=== PATIENT | male | born 1930 | race Caucasian/White ===

== ENCOUNTER → 2019-09-15 | Outpatient (CLI) | payer MEDICARE, OTHER ==
[~2019-09-15] MED LIST: CATHETER FLUSH 10 ML SYR IV PRN; HOLD METFORMIN - RECEIVED CONTRAST 20 ML VIAL IV SCH; IOHEXOL 350 MG/ML 100 ML (OMNIPAQUE 350) VIAL IV ONE; NS 100 ML (IVPB) BAG IV ONE
[2019-09-15 10:22] LABS: CREATININE SERUM 1.32 MG/DL (0.60-1.30)
--- NOTE | 2019-09-15 11:29 | Diagnostic Imaging Report ---
PROCEDURE: CT abdomen and pelvis with and without contrast. TECHNIQUE: Precontrast acquisitions were acquired through the abdomen and pelvis. Multiple contiguous axial images were obtained through the abdomen and pelvis after the administration of intravenous contrast. Auto Exposure Controls were utilized during the CT exam to meet ALARA standards for radiation dose reduction. INDICATION: Right-sided abdominal pain and flank pain for two months. COMPARISON: No prior studies are available for comparison. FINDINGS: Imaging through the lung bases does show some air cysts in the lingula as well as some linear opacities in both bases suggestive of some scarring or subsegmental atelectasis. There are circumscribed low densities within the liver, largest left lobe measuring 4.9 cm and consistent with cysts. The gallbladder is unremarkable. No biliary duct dilatation is seen. The pancreas is unremarkable. Spleen is enlarged measuring up to 16.5 cm AP dimension. No adrenal mass is identified. No definite renal calculi are detected. No ureteral calculi or hydronephrosis is identified. Aorta and iliac vessels are calcified but non-aneurysmal. No central retroperitoneal or mesenteric lymphadenopathy is identified. The small and large bowel loops are normal caliber. No obstruction is identified. No free fluid or fluid collection is detected. The bladder is unremarkable. 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 No definite inguinal or iliac lymphadenopathy is detected. Bony structures are nonacute. IMPRESSION: 1. Hepatic cysts. 2. Mild splenomegaly. 3. No acute feature in the abdomen or pelvis is identified. Dictated by: Dictated on workstation # [id number]
== END ==
LOC: RAD FS 09:30
PROVIDERS: ATTEND Nurse Practitioner Family
DX: K76.89 Other specified diseases of liver (principal); R16.1 Splenomegaly, not elsewhere classified
CPT/HCPCS: 36415; 74178; 82565; 84520

== ENCOUNTER 2020-07-29 02:38 | Emergency (ER) | payer MEDICARE, OTHER ==
[~2020-07-29] VITALS: Ht 175.2 cm; Wt 88.4 kg
[~2020-07-29 02:38] MED LIST changes: +ALBU2.5V4 PO; +ASPI-1238 PO; +CARB15DR OD; -CATHETER FLUSH 10 ML SYR IV PRN; +FINA5TAB6 PO; -HOLD METFORMIN - RECEIVED CONTRAST 20 ML VIAL IV SCH; -IOHEXOL 350 MG/ML 100 ML (OMNIPAQUE 350) VIAL IV ONE; +KETO5DRO14 OD; +LISI-552 PO; +LISI1TAB26 PO; -NS 100 ML (IVPB) BAG IV ONE; +OFLO5DRO3 OD; +PRED5DRO3 OD; +TMSL.4C PO
--- NOTE | 2020-07-29 03:03 | ED General ---
General Chief Complaint: General Problems/Pain Stated Complaint: SHAKEY Source of Information: Patient History of Present Illness Date Seen by Provider: Jul 29, 2020 Time Seen by Provider: 02:50 Initial Comments 89 y/o male presents w c/o feeling "shakey" for the past 2 days. Denies CP, SOA, fever, chills, abdominal pain, nausea or vomiting. States seen and admitted to [facility] a couple weeks ago for a low sodium. Does not take anxiety medication Allergies and Home Medications Allergies Coded Allergies: No Known Drug Allergies (Unverified , 06/22/20) Home Medications Albuterol Sulfate 2.5 Mg/3 Ml Vial.neb, 2.5 MG PO Q4H PRN for SHORTNESS OF BREATH, (Reported) Aspirin 81 Mg Tablet.dr, 81 MG PO DAILY, (Reported) Carboxymethylcellulose Sodium 15 Ml Drops, 1 DROP OD QID, (Reported) Finasteride 5 Mg Tablet, 5 MG PO DAILY, (Reported) Ketorolac Tromethamine 5 Ml Drops, 1 DROP OD QID, (Reported) Lisinopril 20 Mg Tablet, 20 MG PO DAILY Prescribed by: MAXIM ELAINE on 06/24/20 1157 Ofloxacin 5 Ml Drops, 1 DROP OD QID, (Reported) Prednisolone Acetate 5 Ml Drops.susp, 1 DROP OD QID, (Reported) Tamsulosin HCl 0.4 Mg Cap, 0.4 MG PO DAILY, (Reported) Patient Home Medication List Home Medication List Reviewed: Yes Review of Systems Review of Systems Constitutional: No dizziness, No fever, No malaise, No weakness; other (feeling shakey) EENTM: no symptoms reported Respiratory: no symptoms reported; No cough, No short of breath Cardiovascular: no symptoms reported; No chest pain, No edema, No palpitations, No syncope Gastrointestinal: No abdominal pain, No constipation, No diarrhea, No nausea, No vomiting Genitourinary: No hematuria Musculoskeletal: No back pain, No joint pain Skin: No change in color, No rash Psychiatric/Neurological: Denies Anxiety, Denies Depressed, Denies Emotional Problems, Denies Headache, Denies Numbness, Denies Paresthesia, Denies Seizure; Tremors; Denies Weakness Past Pwxfwgx-Wutyjp-Scxzef Hx Past Med/Social Hx: Reviewed Nursing Past Med/Soc Hx Patient Social History Alcohol Beverage of Choice: Beer Recent Foreign Travel: No Contact w/Someone Who Travel: No Immunizations Up To Date Date of Pneumonia Vaccine: Jun 15, 2020 Date of Influenza Vaccine: Jun 15, 2020 Past Medical History Surgeries: No Respiratory: No Cardiac: Yes Hypertension Neurological: No Genitourinary: Yes Benign Prostatic Hyperpl Gastrointestinal: No Musculoskeletal: No Endocrine: No HEENT: No Cancer: No Psychosocial: No Integumentary: No Family Medical History Hypertension Physical Exam Vital Signs Vital Signs - First Documented 07/29/20 02:45 Temp 36.8 Pulse 79 Resp 14 B/P (MAP) 108/73 (85) O2 Delivery Room Air Capillary Refill : Height, Weight, BMI Height: '" Weight: lbs. oz. kg; 29.25 BMI Method: General Appearance: No Apparent Distress, WD/WN Eyes: Bilateral Eye Normal Inspection, Bilateral Eye PERRL, Bilateral Eye EOMI HEENT: PERRL/EOMI, Normal ENT Inspection Neck: Normal Inspection, Non Tender, Supple Respiratory: Chest Non Tender, Lungs Clear, Normal Breath Sounds Cardiovascular: Regular Rate, Rhythm, No Edema, No JVD Gastrointestinal: Non Tender, Soft; No Distended, No Guarding Back: Normal Inspection, No CVA Tenderness Extremity: Normal Capillary Refill, Normal Inspection, Normal Range of Motion, Non Tender, No Calf Tenderness Neurologic/Psychiatric: Alert, Oriented x3, No Motor/Sensory Deficits, Normal Mood/Affect, Other (resting tremor b/l hands) Skin: Normal Color, Warm/Dry Progress/Results/Core Measures Suspected Sepsis SIRS Temperature: Pulse: Respiratory Rate: Laboratory Tests 07/29/20 03:05: White Blood Count 6.7 Blood Pressure / Mean: Laboratory Tests 07/29/20 03:05: Creatinine 1.40H, Platelet Count 213, Total Bilirubin 0.4 Results/Orders Lab Results Laboratory Tests Test 07/29/20 03:05 07/29/20 03:10 Range/Units White Blood Count 6.7 4.3-11.0 10^3/uL Red Blood Count 4.01 L 4.35-5.85 10^6/uL Hemoglobin 12.0 L 13.3-17.7 G/DL Hematocrit 36 L 40-54 % Mean Corpuscular Volume 89 80-99 FL Mean Corpuscular Hemoglobin 30 25-34 PG Mean Corpuscular Hemoglobin Concent 34 32-36 G/DL Red Cell Distribution Width 13.1 10.0-14.5 % Platelet Count 213 130-400 10^3/uL Mean Platelet Volume 9.7 7.4-10.4 FL Immature Granulocyte % (Auto) 0 % Neutrophils (%) (Auto) 56 42-75 % Lymphocytes (%) (Auto) 31 12-44 % Monocytes (%) (Auto) 10 0-12 % Eosinophils (%) (Auto) 2 0-10 % Basophils (%) (Auto) 1 0-10 % Neutrophils # (Auto) 3.7 1.8-7.8 X 10^3 Lymphocytes # (Auto) 2.1 1.0-4.0 X 10^3 Monocytes # (Auto) 0.7 0.0-1.0 X 10^3 Eosinophils # (Auto) 0.1 0.0-0.3 10^3/uL Basophils # (Auto) 0.1 0.0-0.1 10^3/uL Immature Granulocyte # (Auto) 0.0 0.0-0.1 10^3/uL Sodium Level 129 L 135-145 MMOL/L Potassium Level 4.2 3.6-5.0 MMOL/L Chloride Level 93 L 98-107 MMOL/L Carbon Dioxide Level 25 21-32 MMOL/L Anion Gap 11 5-14 MMOL/L Blood Urea Nitrogen 18 7-18 MG/DL Creatinine 1.40 H 0.60-1.30 MG/DL Estimat Glomerular Filtration Rate 48 BUN/Creatinine Ratio 13 Glucose Level 107 H 70-105 MG/DL Calcium Level 9.0 8.5-10.1 MG/DL Corrected Calcium 8.7 8.5-10.1 MG/DL Total Bilirubin 0.4 0.1-1.0 MG/DL Aspartate Amino Transf (AST/SGOT) 17 5-34 U/L Alanine Aminotransferase (ALT/SGPT) 14 0-55 U/L Alkaline Phosphatase 68 40-136 U/L Total Protein 6.3 L 6.4-8.2 GM/DL Albumin 4.4 3.2-4.5 GM/DL Urine Color YELLOW Urine Clarity CLEAR Urine pH 7.0 5-9 Urine Specific [place] 1.010 L 1.016-1.022 Urine Protein NEGATIVE NEGATIVE Urine Glucose (UA) NEGATIVE NEGATIVE Urine Ketones NEGATIVE NEGATIVE Urine Nitrite NEGATIVE NEGATIVE Urine Bilirubin NEGATIVE NEGATIVE Urine Urobilinogen 0.2 < = 1.0 MG/DL Urine Leukocyte Esterase NEGATIVE NEGATIVE Urine RBC (Auto) NEGATIVE NEGATIVE Urine RBC NONE /HPF Urine WBC RARE /HPF Urine Squamous Epithelial Cells NONE /HPF Urine Crystals NONE /LPF Urine Bacteria NEGATIVE /HPF Urine Casts NONE /LPF Urine Mucus NEGATIVE /LPF Urine Culture Indicated NO My Orders Orders - EL ESQUIVEL DO Cbc With Automated Diff (07/29/20 02:56) Comprehensive Metabolic Panel (07/29/20 02:56) Urinalysis (07/29/20 02:56) Ed Iv/Invasive Line Start (07/29/20 02:56) Ns Iv 1000 Ml (Sodium Chloride 0.9%) (07/29/20 04:00) Lorazepam Injection (Ativan Injection) (07/29/20 04:00) Vital Signs/I&O 07/29/20 02:45 Temp 36.8 Pulse 79 Resp 14 B/P (MAP) 108/73 (85) O2 Delivery Room Air Capillary Refill : Departure Impression Primary Impression: Anxiety Additional Impression: Hyponatremia Disposition: 01 HOME, SELF-CARE Condition: Improved Departure-Patient Inst. Decision time for Depature: 04:01 Referrals: [facility] (PCP) Primary Care Physician COLLIN HICKS APRN (Family) Primary Care Physician Patient Instructions: Hyponatremia (DC), Anxiety, Adult (DC) Add. Discharge Instructions: See your Primary Care Provider next week for repeat labs to check your sodium level again. All discharge instructions reviewed with patient and/or family. Voiced understan ding. EL ESQUIVEL DO Jul 29, 2020 03:02
[2020-07-29 03:22] LABS: HEMATOCRIT 36 % (40-54); MEAN CORPUSCULAR HEMOGLOBIN 30 PG (25-34); MEAN CORPUSCULAR VOLUME 89 FL (80-99); WHITE BLOOD COUNT 6.7 10^3/uL (4.3-11.0)
[2020-07-29 03:23] LABS: BASOPHILS % (AUTO) 1 % (0-10); EOSINOPHILS % (AUTO) 2 % (0-10); LYMPHOCYTES % (AUTO) 31 % (12-44); MEAN CORPUSCULAR HGB CONC 34 G/DL (32-36); MEAN PLATELET VOLUME 9.7 FL (7.4-10.4); MONOCYTES % (AUTO) 10 % (0-12); NEUTROPHILS % (AUTO) 56 % (42-75); PLATELET COUNT 213 10^3/uL (130-400)
[2020-07-29 03:24] LABS: BASOPHILS # (AUTO) 0.1 10^3/uL (0.0-0.1); EOSINOPHILS # (AUTO) 0.1 10^3/uL (0.0-0.3); LYMPHOCYTES # (AUTO) 2.1 X 10^3 (1.0-4.0); MONOCYTES # (AUTO) 0.7 X 10^3 (0.0-1.0); NEUTROPHILS # (AUTO) 3.7 X 10^3 (1.8-7.8)
[2020-07-29 03:40] LABS: BACTERIA,URINE NEGATIVE /HPF; BILIRUBIN,URINE NEGATIVE (NEGATIVE); CLARITY,URINE CLEAR; COLOR,URINE YELLOW; GLUCOSE, URINE (UA) NEGATIVE (NEGATIVE); KETONES,URINE NEGATIVE (NEGATIVE); LEUKOCYTE ESTERASE ,URINE NEGATIVE (NEGATIVE); NITRITE,URINE NEGATIVE (NEGATIVE); PROTEIN,URINE NEGATIVE (NEGATIVE); WBC,URINE RARE /HPF
[2020-07-29 03:42] LABS: ALBUMIN 4.4 GM/DL (3.2-4.5); BILIRUBIN,TOTAL 0.4 MG/DL (0.1-1.0); CREATININE SERUM 1.4 MG/DL (0.60-1.30); POTASSIUM 4.2 MMOL/L (3.6-5.0); TOTAL PROTEIN 6.3 GM/DL (6.4-8.2)
[2020-07-29] MEDS ORDERED: LORazepam INJ 2 MG/ML (ATIVAN) VIAL IVP ONE (04:00)
[2020-07-29] MEDS ORDERED: NS IV 1000 ML 1,000 ML IV SCH (04:00)
[2020-07-29 04:40] VITALS: BP 145/91
== END 2020-07-29 04:40 | disposition home or self-care (01) ==
LOC: EDUNIT# 02:38 → ER FS 02:41
DX: F41.9 Anxiety disorder, unspecified (principal); E87.1 Hypo-osmolality and hyponatremia; I10 Essential (primary) hypertension; N40.0 Benign prostatic hyperplasia without lower urinary tract symptoms; Z82.49 Family history of ischemic heart disease and other diseases of the circulatory system; Z79.82 Long term (current) use of aspirin; Z79.52 Long term (current) use of systemic steroids
CPT/HCPCS: 36415; 80053; 81000; 85025

== ENCOUNTER → 2020-08-11 | Outpatient (CLI) | payer MEDICARE, OTHER ==
[2020-08-11 09:13] LABS: POTASSIUM 4.1 MMOL/L (3.6-5.0)
[2020-08-11 09:14] LABS: CALCIUM 9.3 MG/DL (8.5-10.1); CREATININE SERUM 1.34 MG/DL (0.60-1.30)
== END ==
LOC: LAB FS 08:21
PROVIDERS: ATTEND Nurse Practitioner Family
DX: E87.1 Hypo-osmolality and hyponatremia (principal)
CPT/HCPCS: 36415; 80048

== ENCOUNTER 2021-11-14 14:17 | Inpatient (IN) | payer MEDICARE, OTHER ==
[~2021-11-14] VITALS: Ht 175 cm; Wt 91.9 kg
[~2021-11-14 14:17] MED LIST changes: -LISI-552 PO; -LISI1TAB26 PO; +LISI1TAB48 PO; +LISI20TA26 PO
--- NOTE | 2021-11-14 14:24 | ED General ---
General Stated Complaint: CONFUSION History of Present Illness Date Seen by Provider: Nov 14, 2021 Time Seen by Provider: 14:20 Initial Comments 89-year-old male presents with some confusion per family they report that started 3 days ago and has been getting worse. EMS was called for may be some shortness of breath and pain however both are denied by the patient. Patient is able answer his name, birthday, age. He does however have some slurred speech. Patient is well-known by staff and reports that this is not his normal mentation. Patient also has some generalized weakness per EMS with a lot of difficulty getting up to stand. There is no reports of any recent illnesses Allergies and Home Medications Allergies Coded Allergies: No Known Drug Allergies (Unverified , 06/22/20) Patient Home Medication List Home Medication List Reviewed: Yes Albuterol Sulfate (Albuterol Sulfate) 2.5 Mg/3 Ml Vial.neb, 2.5 MG PO Q4H PRN for SHORTNESS OF BREATH, (Reported) Entered as Reported by: DOUG NUR on 06/22/20 1206 Aspirin (Aspirin EC) 81 Mg Tablet.dr, 81 MG PO DAILY, (Reported) Entered as Reported by: DOUG UNR on 06/22/20 1206 Carboxymethylcellulose Sodium (Refresh Tears) 15 Ml Drops, 1 DROP OD QID, (Reported) Entered as Reported by: DOUG NUR on 06/22/20 1206 Finasteride (Finasteride) 5 Mg Tablet, 5 MG PO DAILY, (Reported) Entered as Reported by: DOUG NUR on 06/22/20 1206 Ketorolac Tromethamine (Ketorolac Tromethamine) 5 Ml Drops, 1 DROP OD QID, (Reported) Entered as Reported by: DOUG NUR on 06/22/20 1206 Lisinopril (Lisinopril) 20 Mg Tablet, 20 MG PO DAILY Prescribed by: MAXIM ELAINE on 06/24/20 1157 Ofloxacin (Ofloxacin) 5 Ml Drops, 1 DROP OD QID, (Reported) Entered as Reported by: DOUG NUR on 06/22/20 1206 Prednisolone Acetate (Pred Mild) 5 Ml Drops.susp, 1 DROP OD QID, (Reported) Entered as Reported by: DOUG NUR on 06/22/20 1206 Tamsulosin HCl (Flomax) 0.4 Mg Cap, 0.4 MG PO DAILY, (Reported) Entered as Reported by: DOUG NUR on 06/22/20 1206 Review of Systems Review of Systems Constitutional: see HPI, weakness EENTM: no symptoms reported Respiratory: see HPI Cardiovascular: no symptoms reported Gastrointestinal: no symptoms reported Genitourinary: no symptoms reported Musculoskeletal: see HPI Skin: no symptoms reported Psychiatric/Neurological: See HPI Past [id number]-Xupwcb Hx Past Medical History Surgeries: No Respiratory: No Cardiac: Yes Hypertension Neurological: No Genitourinary: Yes Benign Prostatic Hyperpl Gastrointestinal: No Musculoskeletal: No Endocrine: No HEENT: No Cancer: No Psychosocial: No Integumentary: No Family Medical History Hypertension Physical Exam Vital Signs Vital Signs - First Documented 11/14/21 14:25 Temp 36.4 Pulse 75 Resp 16 B/P (MAP) 173/94 (120) Pulse Ox 100 O2 Delivery Room Air Capillary Refill : Height, Weight, BMI Height: '" Weight: lbs. oz. kg; 28.00 BMI Method: General Appearance: Other (general weakness, slurred speech but appropriate otherwise ) Eyes: Bilateral Eye Normal Inspection HEENT: PERRL/EOMI Neck: Non Tender, Supple Respiratory: Lungs Clear, Normal Breath Sounds Cardiovascular: Regular Rate, Rhythm, Other (mild 1+ edema right lower leg ) Gastrointestinal: Non Tender, Soft Extremity: Normal Capillary Refill Neurologic/Psychiatric: Alert, Motor Weakness (generalized ) Skin: Normal Color, Warm/Dry Focused Exam Lactate Level 11/14/21 14:23: Lactic Acid Level 2.29*H Lactic Acid Level Laboratory Tests Test 11/14/21 14:23 Lactic Acid Level 2.29 MMOL/L (0.50-2.00) *H Progress/Results/Core Measures Suspected Sepsis SIRS Temperature: Pulse: Respiratory Rate: Laboratory Tests 11/14/21 14:23: White Blood Count 14.6H Blood Pressure / Mean: 11/14/21 14:23: Lactic Acid Level 2.29*H Laboratory Tests 11/14/21 14:23: Creatinine 0.85, Platelet Count 199, Total Bilirubin 1.3H Results/Orders Lab Results Laboratory Tests Test 11/14/21 14:23 11/14/21 14:30 11/14/21 14:40 Range/Units White Blood Count 14.6 H 4.3-11.0 10^3/uL Red Blood Count 4.34 4.30-5.52 10^6/uL Hemoglobin 12.6 L 13.3-17.7 g/dL Hematocrit 33 L 40-54 % Mean Corpuscular Volume 77 L 80-99 fL Mean Corpuscular Hemoglobin 29 25-34 pg Mean Corpuscular Hemoglobin Concent 38 H 32-36 g/dL Red Cell Distribution Width 12.9 10.0-14.5 % Platelet Count 199 130-400 10^3/uL Mean Platelet Volume 9.9 9.0-12.2 fL Immature Granulocyte % (Auto) 1 % Neutrophils (%) (Auto) 75 42-75 % Lymphocytes (%) (Auto) 18 12-44 % Monocytes (%) (Auto) 6 0-12 % Eosinophils (%) (Auto) 0 0-10 % Basophils (%) (Auto) 0 0-10 % Neutrophils # (Auto) 11.0 H 1.8-7.8 10^3/uL Lymphocytes # (Auto) 2.6 1.0-4.0 10^3/uL Monocytes # (Auto) 0.9 0.0-1.0 10^3/uL Eosinophils # (Auto) 0.0 0.0-0.3 10^3/uL Basophils # (Auto) 0.0 0.0-0.1 10^3/uL Immature Granulocyte # (Auto) 0.1 0.0-0.1 10^3/uL Neutrophils % (Manual) 70 % Lymphocytes % (Manual) 12 % Monocytes % (Manual) 4 % Eosinophils % (Manual) 0 % Basophils % (Manual) 0 % Band Neutrophils 6 % Atypical Lymphocytes 8 % Platelet Estimate NORMAL Hypochromasia 1+ Microcytosis 1+ Sodium Level 102 *L 135-145 MMOL/L Potassium Level 3.9 3.6-5.0 MMOL/L Chloride Level 65 L 98-107 MMOL/L Carbon Dioxide Level 21 21-32 MMOL/L Anion Gap 16 H 5-14 MMOL/L Blood Urea Nitrogen 14 7-18 MG/DL Creatinine 0.85 0.60-1.30 MG/DL Estimat Glomerular Filtration Rate 83 BUN/Creatinine Ratio 16 Glucose Level 138 H 70-105 MG/DL Lactic Acid Level 2.29 *H 0.50-2.00 MMOL/L Calcium Level 8.9 8.5-10.1 MG/DL Corrected Calcium 8.6 8.5-10.1 MG/DL Magnesium Level 1.6 1.6-2.4 MG/DL Total Bilirubin 1.3 H 0.1-1.0 MG/DL Aspartate Amino Transf (AST/SGOT) 88 H 5-34 U/L Alanine Aminotransferase (ALT/SGPT) 28 0-55 U/L Alkaline Phosphatase 86 40-136 U/L Troponin I < 0.30 <0.30 NG/ML C-Reactive Protein < 0.30 <0.50 MG/DL Total Protein 6.5 6.4-8.2 GM/DL Albumin 4.4 3.2-4.5 GM/DL Urine Color YELLOW Urine Clarity CLEAR Urine pH 7.5 5-9 Urine Specific [place] 1.015 L 1.016-1.022 Urine Protein NEGATIVE NEGATIVE Urine Glucose (UA) NEGATIVE NEGATIVE Urine Ketones 1+ H NEGATIVE Urine Nitrite NEGATIVE NEGATIVE Urine Bilirubin NEGATIVE NEGATIVE Urine Urobilinogen 0.2 < = 1.0 MG/DL Urine Leukocyte Esterase NEGATIVE NEGATIVE Urine RBC (Auto) 2+ H NEGATIVE Urine RBC 0-2 /HPF Urine WBC 0-2 /HPF Urine Squamous Epithelial Cells 0-2 /HPF Urine Crystals NONE /LPF Urine Bacteria NEGATIVE /HPF Urine Casts NONE /LPF Urine Mucus NEGATIVE /LPF Urine Culture Indicated NO Influenza Type A Antigen NEGATIVE NEGATIVE Influenza Type B Antigen NEGATIVE NEGATIVE My Orders Orders - GALINDO,GISELE L DO Chest 1 View Ap/Pa Only (11/14/21 14:24) Ct Head Wo (11/14/21 14:24) Cbc With Automated Diff (11/14/21 14:24) Comprehensive Metabolic Panel (11/14/21 14:24) Lactic Acid Analyzer (11/14/21 14:24) Magnesium (11/14/21 14:24) Ua Culture If Indicated (11/14/21 14:24) Crp Fs (11/14/21 14:24) Troponin I Fs (11/14/21 14:24) Influenza A & B Antigens (11/14/21 14:24) Ns Iv 1000 Ml (Sodium Chloride 0.9%) (11/14/21 14:34) Manual Differential (11/14/21 14:23) Sodium Chloride 3% (Hypertonic Sodium Ch (11/14/21 15:12) Vital Signs/I&O 11/14/21 14:25 Temp 36.4 Pulse 75 Resp 16 B/P (MAP) 173/94 (120) Pulse Ox 100 O2 Delivery Room Air Capillary Refill : ECG Initial ECG Impression Date: Nov 14, 2021 Initial ECG Impression Time: 14:22 Initial ECG Rate: 73 Initial ECG Rhythm: Normal Sinus, PAC Initial ECG Intervals rate 73, sinus rhythm, PAC, LBBB Departure Impression Primary Impression: Hyponatremia Disposition: 30 STILL A PATIENT Condition: Stable Admissions Decision to Admit Reason: Admit from ER (General) Decision to Admit/Date: Nov 14, 2021 Time/Decision to Admit Time: 15:32 Departure-Patient Inst. Referrals: [facility] (PCP) Primary Care Physician COLLIN HICKS APRN (Family) Primary Care Physician GISELE GALINDO DO Nov 14, 2021 14:24
[2021-11-14] MEDS ORDERED: NS IV 1000 ML 1,000 ML IV STA (14:34)
[2021-11-14 14:41] LABS: BASOPHILS % (AUTO) 0 % (0-10); EOSINOPHILS % (AUTO) 0 % (0-10); HEMATOCRIT 33 % (40-54); HEMOGLOBIN 12.6 g/dL (13.3-17.7); LYMPHOCYTES # (AUTO) 2.6 10^3/uL (1.0-4.0); LYMPHOCYTES % (AUTO) 18 % (12-44); MEAN CORPUSCULAR HEMOGLOBIN 29 pg (25-34); MEAN CORPUSCULAR HGB CONC 38 g/dL (32-36); MEAN CORPUSCULAR VOLUME 77 fL (80-99); MEAN PLATELET VOLUME 9.9 fL (9.0-12.2); MONOCYTES # (AUTO) 0.9 10^3/uL (0.0-1.0); MONOCYTES % (AUTO) 6 % (0-12); NEUTROPHILS % (AUTO) 75 % (42-75); PLATELET COUNT 199 10^3/uL (130-400); WHITE BLOOD COUNT 14.6 10^3/uL (4.3-11.0)
[2021-11-14 14:42] LABS: BILIRUBIN,URINE NEGATIVE (NEGATIVE); CLARITY,URINE CLEAR; COLOR,URINE YELLOW; GLUCOSE, URINE (UA) NEGATIVE (NEGATIVE); KETONES,URINE 1+ (NEGATIVE); LEUKOCYTE ESTERASE ,URINE NEGATIVE (NEGATIVE); NITRITE,URINE NEGATIVE (NEGATIVE); PH,URINE 7.5 (5-9); PROTEIN,URINE NEGATIVE (NEGATIVE)
[2021-11-14 14:49] LABS: BACTERIA,URINE NEGATIVE /HPF; RBC,URINE 0-2 /HPF; SQUAMOUS EPITHELIAL CELL,UR 0-2 /HPF; WBC,URINE 0-2 /HPF
--- NOTE | 2021-11-14 14:54 | Diagnostic Imaging Report ---
INDICATION: Slurred speech and confusion. TECHNIQUE: Multiple contiguous axial images were obtained through the brain without the use of intravenous contrast. Auto Exposure Controls were utilized during the CT exam to meet ALARA standards for radiation dose reduction. COMPARISON: There is no prior study for comparison. FINDINGS: There are mild diffuse atrophic changes. There were no extra-axial fluid collections. No intracranial hemorrhage. No intracranial mass or mass effect. No midline shift. The ventricles are normal in size and position. There are low-density changes in the periventricular white matter, compatible with chronic ischemic change. Calvarial windows were unremarkable. IMPRESSION: Mild atrophic changes and chronic ischemic changes in the deep white matter. No acute intracranial abnormality. Dictated by: Dictated on workstation # [id number]
--- NOTE | 2021-11-14 15:02 | Diagnostic Imaging Report ---
INDICATION: Confusion. TECHNIQUE/COMPARISON: A frontal chest was obtained at 2:32 PM and compared to 06/22/2020. FINDINGS: The heart is borderline in size. The mediastinal silhouette is unremarkable. There is some mild linear scarring or atelectasis in the right base. The lungs are otherwise clear. There is no pneumothorax or pleural fluid. IMPRESSION: Mild linear scarring or atelectasis at the right base; otherwise, negative chest. Dictated by: Dictated on workstation # [id number]
[2021-11-14 15:06] LABS: ALKALINE PHOSPHATASE 86 U/L (40-136); BILIRUBIN,TOTAL 1.3 MG/DL (0.1-1.0); BUN/CREATININE RATIO 16; CALCIUM 8.9 MG/DL (8.5-10.1); CARBON DIOXIDE 21 MMOL/L (21-32); CREATININE SERUM 0.85 MG/DL (0.60-1.30); GFR ESTIMATED 83; GLUCOSE 138 MG/DL (70-105); MAGNESIUM 1.6 MG/DL (1.6-2.4); POTASSIUM 3.9 MMOL/L (3.6-5.0)
[2021-11-14 15:07] LABS: ALANINE AMINOTRANSFERASE 28 U/L (0-55); ALBUMIN 4.4 GM/DL (3.2-4.5); CHLORIDE 65 MMOL/L (98-107); TOTAL PROTEIN 6.5 GM/DL (6.4-8.2)
[2021-11-14 15:10] LABS: SODIUM 102 MMOL/L (135-145)
[2021-11-14] MEDS ORDERED: SODIUM CHLORIDE 3% ONE (15:12)
[2021-11-14 15:13] LABS: ATYPICAL LYMPHOCYTES 8 %; BAND NEUTROPHILS 6 %; BASOPHILS % (MANUAL) 0 %; EOSINOPHILS % (MANUAL) 0 %; LYMPHOCYTES % (MANUAL) 12 %; MONOCYTES % (MANUAL) 4 %; NEUTROPHILS % (MANUAL) 70 %
[2021-11-14 15:14] LABS: HYPOCHROMASIA 1+; MICROCYTOSIS 1+; PLATELET ESTIMATE NORMAL
[2021-11-14] MEDS ORDERED: ONDANSETRON 4 MG (ZOFRAN) ORAL DISSOLVE TAB PO PRN (17:15)
[2021-11-14] MEDS ORDERED: ONDANSETRON 4 MG/2 ML (SDV) Z0FRAN IV PRN (17:15)
[2021-11-14] MEDS ORDERED: ANTACID SUSP 30 ML UDC (MYLANTA) PO PRN (17:15)
[2021-11-14] MEDS ORDERED: MELATONIN 3 MG TABLET PO PRN (17:15)
[2021-11-14] MEDS ORDERED: ACETAMINOPHEN 325 MG TABLET PO PRN (17:15)
[2021-11-14] MEDS ORDERED: diphenhydrAMINE 50 MG/ML INJ (BENADRYL) IVP PRN (17:15)
[2021-11-14] MEDS ORDERED: PATIENT MAY USE OWN MEDS, ALL PO SCH (17:15)
[2021-11-14] MEDS ORDERED: diphenhydrAMINE 25 MG TAB (BENADRYL) PO PRN (17:15)
[2021-11-14] MEDS ORDERED: ENOXAPARIN 40 MG/0.4 ML (LOVENOX) SYR SC SCH (17:15)
[2021-11-14] MEDS ORDERED: polyethylene glycoL POWDER 17 GM (MIRALAX) PACK PO PRN (17:15)
[2021-11-14] MEDS ORDERED: BISACODYL 10 MG SUPP (DULCOLAX) PR PRN (17:15)
[2021-11-14 17:30] VITALS: BP 129/93
[2021-11-14] MEDS: NS IV 1000 ML 1,000 ML IV SCH (17:38)
[2021-11-14 17:54] VITALS: BP 173/94
[2021-11-14] MEDS ORDERED: RT-ALBUTEROL SULF 2.5 MG/3 ML PRE-MIX VIAL INH PRN (18:00)
[2021-11-14] MEDS ORDERED: diphenhydrAMINE 50 MG/ML INJ (BENADRYL) IM ONE (18:30)
[2021-11-14] MEDS ORDERED: HALOPERIDOL 5 MG/ML (HALDOL) VIAL IM NR (18:30)
[2021-11-14] MEDS ORDERED: HALOPERIDOL 5 MG/ML (HALDOL) VIAL IM PRN (18:30)
[2021-11-14 19:14] VITALS: BP 163/70
[2021-11-14 19:18] VITALS: BP 195/88
[2021-11-14] MEDS ORDERED: LORazepam INJ 2 MG/ML (ATIVAN) VIAL IVP STA (19:31)
[2021-11-14 19:43] LABS: CALCIUM 8.4 MG/DL (8.5-10.1); CREATININE SERUM 0.91 MG/DL (0.60-1.30); POTASSIUM 3.8 MMOL/L (3.6-5.0)
[2021-11-14] MEDS: DOCUSATE SODIUM 100 MG (COLACE) CAP PO SCH (20:13)
[2021-11-14] MEDS: LORazepam INJ 2 MG/ML (ATIVAN) VIAL IVP PRN (22:29)
[2021-11-15 00:01] VITALS: BP 133/46
[2021-11-15] MEDS: LORazepam INJ 2 MG/ML (ATIVAN) VIAL IVP PRN ×5 (00:37→15:08)
[2021-11-15] MEDS: morphine INJ 4 MG/ML 1 ML (VIAL/SYRINGE) IV PRN ×3 (01:51→09:57)
[2021-11-15 04:45] VITALS: BP 102/65
[2021-11-15] MEDS: NS IV 1000 ML 1,000 ML IV SCH (05:49)
[2021-11-15 06:06] LABS: BASOPHILS # (AUTO) 0.1 10^3/uL (0.0-0.1); BASOPHILS % (AUTO) 0 % (0-10); EOSINOPHILS % (AUTO) 0 % (0-10); HEMATOCRIT 36 % (40-54); LYMPHOCYTES # (AUTO) 2.2 10^3/uL (1.0-4.0); LYMPHOCYTES % (AUTO) 10 % (12-44); MEAN CORPUSCULAR HEMOGLOBIN 29 pg (25-34); MEAN CORPUSCULAR HGB CONC 36 g/dL (32-36); MEAN CORPUSCULAR VOLUME 79 fL (80-99); MEAN PLATELET VOLUME 9.8 fL (9.0-12.2); MONOCYTES # (AUTO) 1.4 10^3/uL (0.0-1.0); MONOCYTES % (AUTO) 6 % (0-12); NEUTROPHILS # (AUTO) 17.6 10^3/uL (1.8-7.8); NEUTROPHILS % (AUTO) 83 % (42-75); PLATELET COUNT 222 10^3/uL (130-400); WHITE BLOOD COUNT 21.3 10^3/uL (4.3-11.0)
[2021-11-15 06:15] LABS: ALBUMIN 3.6 GM/DL (3.2-4.5); POTASSIUM 3.6 MMOL/L (3.6-5.0)
[2021-11-15 06:17] LABS: CALCIUM 8.5 MG/DL (8.5-10.1)
[2021-11-15 06:18] LABS: TOTAL PROTEIN 5.8 GM/DL (6.4-8.2)
[2021-11-15 06:20] LABS: BILIRUBIN,TOTAL 1.5 MG/DL (0.1-1.0)
[2021-11-15 06:21] LABS: CREATININE SERUM 1.46 MG/DL (0.60-1.30)
[2021-11-15 07:20] LABS: BAND NEUTROPHILS 8 %; NEUTROPHILS % (MANUAL) 76 %
[2021-11-15 07:21] LABS: BASOPHILS % (MANUAL) 0 %; EOSINOPHILS % (MANUAL) 0 %; LYMPHOCYTES % (MANUAL) 10 %; MONOCYTES % (MANUAL) 3 %; RBC MORPH NORMAL; REACTIVE LYMPHOCYTES 3 %
[2021-11-15 08:00] VITALS: BP 106/67
[2021-11-15] MEDS: DOCUSATE SODIUM 100 MG (COLACE) CAP PO SCH (09:01)
--- NOTE | 2021-11-15 09:26 | Physical Therapy Progress Note ---
Therapy Progress Note Patient being removed from services due to decline in status. MATT RIDER PT Nov 15, 2021 09:26
--- NOTE | 2021-11-15 09:49 | Occ Therapy Progress Note ---
Therapy Progress Note OT talked with nurse who indicated pt has had a decline in status, and unable to follow commands. OT will discharge pt from services. Please send new orders when pt is more medically stable and able to actively participate in skilled therapy. YESSENIA DAVIS OT Nov 15, 2021 09:49
[2021-11-15] MEDS ORDERED: ACETAMINOPHEN 650 MG SUPP (TYLENOL) PR PRN (11:00)
[2021-11-15] MEDS ORDERED: BISACODYL 10 MG SUPP (DULCOLAX) PR PRN (11:00)
[2021-11-15] MEDS ORDERED: LORazepam INJ 2 MG/ML (ATIVAN) VIAL IVP PRN (11:00)
[2021-11-15] MEDS ORDERED: SALIVA STIMULANT MOUTH SPRAY (BIOTENE) 1.5 OZ MM PRN (11:00)
[2021-11-15] MEDS ORDERED: RT-ALBUTEROL/IPRATROPIUM 3 ML (DUONEB) VIAL INH PRN (11:00)
[2021-11-15] MEDS ORDERED: ARTIFICAL TEARS 0.4 ML UNIT DOSE (REFRESH PLUS) OU PRN (11:00)
--- NOTE | 2021-11-15 11:49 | History & Physical-Hospitalist ---
VIJI VALDEZ 11/15/21 1149: History of Present Illness HPI/Chief Complaint CC: Confusion/Altered Mental Status HPI: Tigre Herrera is an 89yoM who presented to [place] ED with confusion for approximately 2 days. Patient was brought in by family stating that he, "was not himself." Upon evaluation; however, he was able to state name, year, and . Upon evaluation, patient was found to have a sodium of 102 as well as an elevated WBC. Workup included a CXR, UA, and Head CT which were all unremarkable. He was then transferred to [facility] in [place] for admission. Overnight, the patient had a witnessed episode described as a seizure and a code blue was activated. The patient was stabilized; however, he has since been unresponsive and non-verbal. Pt's family endorsed that a similar admission occurred approximately one year ago for hyponatremia. He was treated at that time and improved. Source: patient, family, RN/MD, RN notes reviewed, EMS notes reviewed Exam Limitations: clinical condition Date Seen 11/15/21 Time Seen by a Provider: 09:00 Attending Physician Sapphire Howard DO [facility] Referring Physician Date of Admission Nov 14, 2021 at 16:50 Home Medications & Allergies Home Medications Reviewed patient Home Medication Reconciliation performed by pharmacy medication reconciliations automotive engineering technician and/or nursing. Patients Allergies have been reviewed. Allergies Allergies Coded Allergies No Known Drug Allergies (Unverified06/22/20) Past Fvlejjr-Yestuf-Wmpamn Hx Patient Social History Tobacco Use?: Yes Tobacco type used: Cigars Smoking Status: Former Smoker Use of E-Cig and/or Vaping dev: Unable to obtain Substance use?: Unable to obtain Alcohol Use?: Unable to obtain Pt feels they are or have been: Unable to obtain Immunizations Up To Date Date of Influenza Vaccine: Jun 15, 2020 First/Initial COVID19 Vaccinat: 2020 Second COVID19 Vaccination Rashad: 2020 Date of Pneumonia Vaccine: Jun 15, 2020 Current Status Advance Directives: Unable to obtain Communicates: Verbally Primary Language: Grenadian Preferred Spoken Language: Grenadian Is interpretation needed?: No Past Medical History Hypertension Benign Prostatic Hyperpl HTN Cataract Surgery last week Family Medical History No Pertinent Family Hx, Hypertension Review of Systems ROS-Unable to Obtain: limited due to clinical condition; obtained from family members Constitutional: see HPI; No fever; malaise EENTM: no symptoms reported Respiratory: see HPI; No cough; short of breath Cardiovascular: no symptoms reported Gastrointestinal: no symptoms reported Genitourinary: no symptoms reported Musculoskeletal: no symptoms reported Skin: no symptoms reported Psychiatric/Neurological: See HPI, Other (Confusion) Physical Exam Physical Exam Vital Signs Vital Signs - First Documented 11/14/21 11/14/21 11/14/21 14:25 17:54 19:35 Temp 36.4 Pulse 75 Resp 16 B/P (MAP) 173/94 (120) Pulse Ox 100 O2 Delivery Room Air O2 Flow Rate 2.00 FiO2 21 Capillary Refill : Greater Than 3 Seconds Height, Weight, BMI Height: '" Weight: lbs. oz. kg; 28.73 BMI Method: General Appearance: No Apparent Distress, Cachetic HEENT: PERRL/EOMI, Pharynx Normal, Moist Mucous Membranes Neck: Normal Inspection, Non Tender, Supple Respiratory: Chest Non Tender, Lungs Clear, Normal Breath Sounds, No Accessory Muscle Use, No Respiratory Distress Cardiovascular: Regular Rate, Rhythm, No Edema, No Gallop, No JVD, No Murmur, Normal Peripheral Pulses Gastrointestinal: Normal Bowel Sounds, No Organomegaly, Soft Rectal: Deferred Back: Normal Inspection Extremity: Normal Capillary Refill, Normal Inspection, Normal Range of Motion, No Pedal Edema Neurologic/Psychiatric: No Motor/Sensory Deficits, Other (sedated) Skin: Normal Color, Warm/Dry Lymphatic: No Adenopathy Results Results/Procedures Labs Laboratory Tests 11/14/21 14:23 11/14/21 19:00 11/15/21 05:53 Patient resulted labs reviewed. Imaging: Reviewed Imaging Report Assessment/Plan Admission Diagnosis Severe Hyponatremia Admission Status: Inpatient Order (span 2 midnights) Reason for Inpatient Admission: Supportive Care Assessment and Plan Assessment: Altered Mental Status Severe Hyponatremia Generalized Weakness Hypertension Leukocytosis Anemia Acute Kidney Injury Hx of BPH Plan: s/p 3% NS brought Na up to 106 today In-depth discussion with family regarding prognosis of such low sodium and seizure overnight. They understand risks and benefits of treatment as well as prognosis and option of comfort care. They are agreeable to comfort care. Comfort Care consult IV NS Diagnosis/Problems Diagnosis/Problems (1) Hyponatremia Status: Acute (2) Altered mental status (3) Generalized weakness (4) Leukocytosis (5) Anemia (6) Acute kidney injury (7) Hypertension Status: Chronic ANITASAPPHIRE SNIDER 11/16/21 0534: History of Present Illness HPI/Chief Complaint CC: Severe hyponatremia HPI: 89 yr old clinic pt of Dr. Pacheco. He has a past medical history of hyponatremia. It was last checked two weeks ago and it was within normal limits. He presented to the ER with altered mental status. He was found to have a sodium level that was severely low at 102. Pt was stable at that point, started on normal saline to gradually increase the sodium level to prevent cerebral edema. Upon arrival the pt became very agitated and suffered a seizure and likely aspiration. Urgent decision on the family's part to make him DNR and DNI. He remains comatose. I did update them on the brain damage likely suffered from the severity of his hyponatremia and they have made him comfort care. Source: family, RN/MD, RN notes reviewed, EMS notes reviewed Exam Limitations: clinical condition Past Tfcnwbs-[id number]-Lppppk Hx Patient Social History Marrital Status: Employed/Student: retired Smoking Status: Never a Smoker Past Medical History High Cholesterol, Hypertension Review of Systems Constitutional: see HPI Physical Exam Physical Exam General Appearance: Chronically ill, Other (Comatose) Respiratory: Accessory Muscle Use, Rales, Wheezing Cardiovascular: Tachycardia Assessment/Plan Admission Diagnosis Assessment: Severe hyponatremia Seizure-like activity yesterday Suspected brain damage Aspiration suspected Plan: DNR Comfort care Admission Status: Inpatient Order (span 2 midnights) Reason for Inpatient Admission: Hyponatremia Supervisory-Addendum Brief Verification & Attestation Participated in pt care: history, MDM, physical Personally performed: exam, history, MDM, supervision of care Care discussed with: Medical Student Procedures: n/a Results interpretation: Verified all documentation Verification and Attestation of Medical Student E/M Service A medical student performed and documented this service in my presence. I revi ewed and verified all information documented by the medical student and made modifications to such information, when appropriate. I personally performed the physical exam and medical decision making. Sapphire Howard, Nov 16, 2021,05:32 VIJI VALDEZ Nov 15, 2021 11:49 SAPPHIRE HOWARD DO Nov 16, 2021 05:34
[2021-11-15] MEDS: morphine INJ 10 MG/ML 1ML (SYR OR VIAL) IVP PRN ×2 (12:55→22:56)
[2021-11-15] MEDS: GLYCOPYRROLATE 0.2 MG/ML (ROBINUL) 2 ML VIAL IV PRN ×2 (15:08→20:38)
[2021-11-16] MEDS: GLYCOPYRROLATE 0.2 MG/ML (ROBINUL) 2 ML VIAL IV PRN (04:15)
--- NOTE | 2021-11-16 06:36 | Discharge Summary ---
Discharge Summary Hospital Course Was the Problem List Reviewed?: Yes Problems/Dx: (1) Hyponatremia Status: Acute (2) Altered mental status (3) Generalized weakness (4) Leukocytosis (5) Anemia (6) Acute kidney injury (7) Hypertension Status: Chronic Hospital Course Date of Admission: Nov 14, 2021 at 16:50 Admission Diagnosis : Family Physician/Provider: Ellen Tenorio Aprn Date of Discharge: 11/16/21 Discharge Diagnosis: Hyponatremia, cerebral edema, aspiration Hospital Course: Pt had a brief hospital course. He was admitted for severe and profound hyponatremia of 102. At 89 years old he had significant difficulties with that. He had a seizure-like activity the night after he was admitted. Family evaluated the goals of treatment and deemed him DNR and DNI. He remained comatose after that seizure likely due to brain damage from hyponatremia. He was placed on comfort care and . Labs and Pending Lab Test: Home Meds Active Lisinopril 20 Mg Tablet 20 Mg PO DAILY Reported Albuterol Sulfate 2.5 Mg/3 Ml Vial.neb 2.5 Mg PO Q4H PRN Aspirin EC (Aspirin) 81 Mg Tablet.dr 81 Mg PO DAILY Refresh Tears (Carboxymethylcellulose Sodium) 15 Ml Drops 1 Drop OD QID Finasteride 5 Mg Tablet 5 Mg PO DAILY Flomax (Tamsulosin HCl) 0.4 Mg Cap 0.4 Mg PO DAILY Ofloxacin 5 Ml Drops 1 Drop OD QID Ketorolac Tromethamine 5 Ml Drops 1 Drop OD QID Pred Mild (Prednisolone Acetate) 5 Ml Drops.susp 1 Drop OD QID Assessment/Pt Instructions Discharge Planning: <30 minutes discharge planning Discharge Physical Examination Vital Signs Vital Signs Date Time Temp Pulse Resp B/P (MAP) Pulse Ox O2 Delivery O2 Flow Rate FiO2 11/15/21 20:40 Nasal Cannula 2.00 11/15/21 08:00 36.5 87 22 106/67 (80) 97 11/14/21 17:54 21 Allergies: Coded Allergies: No Known Drug Allergies (Unverified , 06/22/20) Discharge Summary Date of Admission Nov 14, 2021 at 16:50 Date of Discharge Admission Diagnosis Assessment: Severe hyponatremia Seizure-like activity yesterday Suspected brain damage Aspiration suspected Plan: DNR Comfort care Comfort Measures/ End of Life Care: Comfort Measures Discharge Diagnosis (1) Hyponatremia Status: Acute (2) Altered mental status (3) Generalized weakness (4) Leukocytosis (5) Anemia (6) Acute kidney injury (7) Hypertension Status: Chronic BERHANE HOWARD DO Nov 16, 2021 06:36
== END 2021-11-16 10:35 | disposition expired | DRG 640 ==
LOC: EDUNIT# 14:17 → ER FS 14:18 → 4TH 16:50
PROVIDERS: ADMIT Internal Medicine; ATTEND Internal Medicine
PROC: 5A12012 Performance of Cardiac Output, Single, Manual (ICD-10-PCS; principal; 2021-11-14)
DX: E87.1 Hypo-osmolality and hyponatremia (principal); G93.6 Cerebral edema; R40.20 Unspecified coma; N17.9 Acute kidney failure, unspecified; G93.89 Other specified disorders of brain; R56.9 Unspecified convulsions; R47.81 Slurred speech; T17.990A Other foreign object in respiratory tract, part unspecified in causing asphyxiation, initial encounter; Z51.5 Encounter for palliative care; Z66 Do not resuscitate; I10 Essential (primary) hypertension; N40.0 Benign prostatic hyperplasia without lower urinary tract symptoms; Z87.891 Personal history of nicotine dependence; Z79.82 Long term (current) use of aspirin; Z79.52 Long term (current) use of systemic steroids; Z82.49 Family history of ischemic heart disease and other diseases of the circulatory system
CPT/HCPCS: 36415; 70450; 71045; 80048; 80053; 81000; 83605; 83735; 84484; 85007; 85027; 86141; 87804; 93005